=== PATIENT | female | born 1990 | race African-American/Black ===

== ENCOUNTER 2017-01-14 04:59 | Inpatient (IN) ==
[2017-01-14] MEDS ORDERED: ONDANSETRON 4 MG/2 ML VIAL IV PRN ×2 (05:08→14:30)
[2017-01-14] MEDS ORDERED: BUTORPHANOL 2 MG/ML VIAL IV PRN (05:08)
[2017-01-14] MEDS ORDERED: OXYTOCIN/LR 20 UNIT/1,000 ML BAG IV SCH (05:30)
[2017-01-14] MEDS: LACTATED RINGERS 1,000 ML IV SCH ×2 (05:31→09:22)
[2017-01-14] MEDS ORDERED: PENICILLIN G POTASSIUM INJ 6,000,000 UNIT in SODIUM CHLORIDE 0.9% 100 ML IV ONE ×2 (05:45→07:30)
[2017-01-14 06:23] LABS: Basophils % 0.3 % (0.0-0.8); Eosinophils # 0.2 10*3/uL (0.0-0.87); Eosinophils % 2.8 % (0.00-10.9); Hematocrit 27.4 VOL% (35.7-47.0); Hemoglobin 8.6 GM/DL (12.0-16.0); Immature Granulocytes % 0.5 %; Immature Granulocytes Absolute 0.03 #; Lymphocytes # 2.2 10*3/uL (1.4-4.0); Lymphocytes % 36.7 % (21.3-54.2); Mean Corpuscular HGB Conc 31.4 GM/DL (32-36); Mean Corpuscular Hemoglobin 24 PG (27-34); Mean Corpuscular Volume 77.8 FL (87-102); Mean Platelet Volume 10.8 FL (9.6-12.0); Monocytes # 0.6 10*3/uL (0.11-0.8); Neutrophils % 49.7 % (38.7-73.9); Platelet Count 308 T/CUMM (130-400); Red Blood Count 3.52 MC/CUMM (3.8-5.5); Red Cell Distribution Width 14.6 % (9.3-17.3); White Blood Count 6.1 T/CUMM (4-12)
[2017-01-14 07:04] LABS: Alanine Aminotransferase < 9 U/L (13-56); Albumin 2.4 G/DL (3.4-5.0); Alkaline Phosphatase 180 U/L (45-117); Aspartate Amino Transferase 7 U/L (0-37); Blood Urea Nitrogen 5 MG/DL (7-18); Calcium 8.8 MG/DL (8.5-10.1); Glucose 81 MG/DL (74-106); Osmolality,Calculated 268.8 MOS/KG (273-304); Sodium 137 MMOL/L (136-145); Total Protein 6.5 G/DL (6.4-8.3)
--- NOTE | 2017-01-14 08:58 | OB/GYN History & Physical ---
History of Present Illness Chief complaint: IOL History of present illness: Ms. Lincoln is a 26 year old female admitted at 39 plus weeks for elective IOL. R/B/A to IOL reviewed. Pt verbalized understanding and is willing to proceed. course uneventful. No medical or surgical history. Home Medications Medication Instructions Recorded Confirmed Type No122/Iron/Folic Acid 1 each PO DAILY 07/23/16 01/14/17 History [ Multi Tablet] Allergies Allergy/AdvReac Type Severity Reaction Status Date / Time No Known Allergies Allergy Verified 12/02/16 14:16 Medical,Surgical,& Family Hx - Medical History Rheumatology: No history of;: Psoriasis, Sjogrens, Systemic Lupus Erythematosus Hematology: No history of: Blood Transfusion Reaction Reproductive: No history of: Ectopic , Complication Other: No history of: Anesthesia Reactions, Anaphylaxis, Cancer, Eczema, HIV, Malignant Hyperthermia, MRSA, Vancomycin-Resistant Enterococci, Skin Problems - Surgical History Thoracic Surgeries: Patient denies;: Organ Transplant, Lobectomy Neurologic Surgeries: Patient denies: Neurologic Surgery Abdominal Surgeries: Surgical HX of: Appendectomy Reproductive Surgeries: Patient denies;: Section - Family History Family History: Denies;: Family Anesthesia Reaction, Family Cancer, Family Diabetes, Family Heart Disease, Family Hematology, Family Hypertension, Family Psychiatric Problems, Family Stroke, Additional Family History - Social History Smoking Status: Never smoker Frequency of Alcohol Use: None Type of Drug Use: None Exam [employer] - Constitutional Vitals: Vital Signs Pulse Resp BP 01/14/17 07:58 72 19 113/75 General appearance: no acute distress - Head Head exam: Present: normocephalic - Eye Eye exam: Present: EOMI Pupils: Present: MELANIE, normal accommodation - Cardiovascular Cardiovascular exam: Present: regular rate and rhythm - GI/Abdominal GI/Abdominal exam: Present: soft, other (FHTs reassuring) Assessment and Plan (1) 39 weeks gestation of Status: Acute Assessment and plan: Plan Current Visit: Yes Results - Labs CBC & BMP: 01/14/17 05:56 01/14/17 05:56
[2017-01-14] MEDS ORDERED: hydrOXYzine HCL 25 MG/1 ML VIAL IM PRN (09:09)
[2017-01-14] MEDS ORDERED: PROMETHAZINE 25 MG/1 ML VIAL IM ONE (09:09)
[2017-01-14] MEDS ORDERED: ePHEDrine 50 MG/ML AMP IV PRN (09:09)
[2017-01-14] MEDS ORDERED: CITRIC ACID/SODIUM CITRATE 30 ML UDCUP PO ONE (09:09)
[2017-01-14] MEDS ORDERED: FAMOTIDINE 20 MG/2 ML VIAL IV ONE (09:09)
[2017-01-14] MEDS ORDERED: ONDANSETRON 4 MG/2 ML VIAL IV ONE (09:09)
[2017-01-14] MEDS ORDERED: fentaNYL 2 MCG/ROPIV 0.2% EPID 150 ML EPIDURAL SCH (09:09)
[2017-01-14] MEDS ORDERED: diphenhydrAMINE 50 MG/1 ML VIAL IV PRN ×2 (09:09)
[2017-01-14] MEDS ORDERED: CITRIC ACID/SODIUM CITRATE 30 ML UDCUP ONE (09:17)
[2017-01-14] MEDS ORDERED: LACTATED RINGERS 1,000 ML IV SCH (09:30)
[2017-01-14] MEDS ORDERED: PENICILLIN G POTASSIUM INJ 3,000,000 UNIT in SODIUM CHLORIDE 0.9% 100 ML IV SCH (11:45)
--- NOTE | 2017-01-14 11:59 | Event Note ---
DELIVERY NOTE of male infant in BETHANY position with epidural anesthesia. Pt complete and pushed for ~ 15 minutes. Weight pending. APGARS 8/9. Spontaneous delivery of intact placenta. EBL 300 cc. Bilateral periurethral lacerations. Right repaired with figure of 8 4.0 vicryl suture. NICU present for delivery. Baby, skin to skin with mom. Mom and baby well.
[2017-01-14] MEDS ORDERED: BISACODYL 10 MG SUPP RECTAL PRN (14:30)
[2017-01-14] MEDS ORDERED: HYDROCORTISONE 2.5% RECTAL CREAM 30 GM TUBE TOP PRN (14:30)
[2017-01-14] MEDS ORDERED: RHO(D) IMMUNE GLOBULIN 300 MCG SYRINGE IM ONE (14:30)
[2017-01-14] MEDS ORDERED: BENZOCAINE 20%/MENTHOL 0.5% SPRAY 56 GM CAN TOP PRN (14:30)
[2017-01-14] MEDS ORDERED: oxyCODONE/ACETAMINOPHEN 5-325 MG TABLET PO PRN ×2 (14:30)
[2017-01-14] MEDS ORDERED: WITCH HAZEL PADS 100/JAR TOP PRN (14:30)
[2017-01-14] MEDS ORDERED: DIPH/TET/ACEL PERT BOOSTER VACCINE 0.5 ML VIAL IM ONE (14:30)
[2017-01-14] MEDS ORDERED: MEASLES/MUMPS/RUBELLA VACCINE 0.5 ML VIAL SUBCUT ONE (14:30)
[2017-01-14] MEDS ORDERED: LANOLIN 50% CREAM 0.3 OZ TUBE TOP PRN (14:30)
[2017-01-14] MEDS: IBUPROFEN 800 MG TABLET PO PRN (14:42)
--- NOTE | 2017-01-14 16:54 | Anesthesia Post-Op ---
Anesthesia Post OP - Post Ansesthetic Evaluation Patient seen in post op: Yes Resp: within normal limits CV: within normal limits Mental: within normal limits Temp: within normal limits [id number]: within normal limits Nausea and Vomiting: within normal limits Pain: within normal limits
[2017-01-14] MEDS: DOCUSATE SODIUM 100 MG CAPSULE PO SCH (21:53)
[2017-01-15 06:53] LABS: Basophils % 0.1 % (0.0-0.8); Eosinophils # 0.1 10*3/uL (0.0-0.87); Eosinophils % 1.9 % (0.00-10.9); Hematocrit 24.4 VOL% (35.7-47.0); Hemoglobin 7.8 GM/DL (12.0-16.0); Immature Granulocytes % 0.4 %; Immature Granulocytes Absolute 0.03 #; Lymphocytes # 2.4 10*3/uL (1.4-4.0); Mean Corpuscular Hemoglobin 25 PG (27-34); Mean Corpuscular Volume 78.2 FL (87-102); Mean Platelet Volume 11.5 FL (9.6-12.0); Monocytes # 0.6 10*3/uL (0.11-0.8); Monocytes % 8.3 % (1.7-12.7); Neutrophils # 4.3 10*3/uL (1.4-7.4); Neutrophils % 57.3 % (38.7-73.9); Platelet Count 258 T/CUMM (130-400); Red Blood Count 3.12 MC/CUMM (3.8-5.5); Red Cell Distribution Width 14.7 % (9.3-17.3); White Blood Count 7.5 T/CUMM (4-12)
--- NOTE | 2017-01-15 08:15 | OB/GYN Progress Note ---
Assessment and Plan (1) 39 weeks gestation of Status: Acute Assessment and plan: Plan Current Visit: Yes (2) Encounter for full-term uncomplicated delivery Status: Acute Assessment and plan: PPD#1 s/p Doing well GBS positive, one dose of abx Continue care Current Visit: Yes HOME CHILD CARE PROVIDER - PN: Subj Interval history: Pt feels good this morning. No complaints Exam HOME CHILD CARE PROVIDER - Constitutional Vitals: Vital Signs Temp Pulse Resp BP Pulse Ox 01/15/17 07:19 97.7 F 84 20 116/74 100 01/15/17 04:00 97.9 F 86 18 112/69 97 01/15/17 00:00 97.6 F 84 18 102/60 96 01/14/17 20:00 98.3 F 79 18 104/56 97 01/14/17 15:30 97.7 F 83 18 118/71 97 01/14/17 14:30 97.9 F 83 20 121/72 98 General appearance: no acute distress - Head Head exam: Present: normocephalic - Eye Eye exam: Present: EOMI Pupils: Present: MELANIE - GI/Abdominal GI/Abdominal exam: Present: soft. Absent: tenderness Results - Labs CBC & BMP: 01/15/17 04:22 01/14/17 05:56
[2017-01-15] MEDS: DOCUSATE SODIUM 100 MG CAPSULE PO SCH ×2 (08:38→20:49)
[2017-01-15] MEDS: IBUPROFEN 800 MG TABLET PO PRN (20:49)
--- NOTE | 2017-01-16 07:27 | Discharge Summary ---
Hospital Course - Hospital Course Hospital Course: Routine course. No issues Feels well today. Ready to go home. Diagnosis - Discharge Diagnosis (1) 39 weeks gestation of Status: Acute (2) Encounter for full-term uncomplicated delivery Status: Acute Discharge Plan - Discharge Data Disposition: Disch To Home/Self Care Condition at Discharge: Stable Discharge Diet: advance to your usual diet Activity: other (routine ) Hygiene: may shower Weight Bearing at Discharge: full weight bearing Contact your physician if you experience:: fever over 101, Difficulty voiding, Redness or swelling - Discharge Medications No Action No122/Iron/Folic Acid [ Multi Tablet] 1 each PO DAILY - Follow Up or Referral - Forms/Instructions Exam - Constitutional Vitals: Period Temp Pulse Resp BP Sys/Low Pulse Ox Last 24 Hr 97.4 F-98.8 F 73-99 17-20 96-113/55-70 97-100 General appearance: no acute distress - Head Head exam: Present: normocephalic - Eye Eye exam: Present: EOMI Pupils: Present: MELANIE - GI/Abdominal GI/Abdominal exam: Present: soft. Absent: tenderness DS: Provider Date of admission: 01/14/17 05:08 Primary care physician: . No PCP Attending physician on admission: Clara Best MD Consults: 01/14/17 14:30 Consult to [facility] [CONS] Routine Consult [facility] Warden: Breast Feeding Discharging clinician: Clara Best MD
[2017-01-16 07:37] VITALS: BP 112/73
[2017-01-16] MEDS: DOCUSATE SODIUM 100 MG CAPSULE PO SCH (09:00)
== END 2017-01-16 11:00 | disposition home or self-care (01) | DRG 560 ==
LOC: N.LDOUT 04:59 → N.LD 05:00 → N.OB 14:28
PROVIDERS: ADMIT Obstetrics & Gynecology; ATTEND Obstetrics & Gynecology